=== PATIENT | female | born 1955 | race Caucasian/White ===

== ENCOUNTER → 2017-01-21 | Outpatient (CLI) | payer BC, OTHER ==
[~2017-01-21] MED LIST: CYAN3INJ IM
--- NOTE | 2017-01-21 13:39 | DIAGNOSTIC IMAGING REPORT ---
RIGHT HIP UNILATERAL 2 VIEWS CLINICAL HISTORY: Pain and swelling of right lower extremity Right pain COMPARISON: None. DISCUSSION: The bones and joint spaces appear intact. There is no evidence of fracture, dislocation or bony disease. There is no evidence for soft tissue swelling. IMPRESSION: Negative study. Electronically signed by: Ramón Arroyo M.D. 01/21/2017 1:37 PM Dictated Date/Time: 01/21/2017 1:36 PM
--- NOTE | 2017-01-21 13:40 | DIAGNOSTIC IMAGING REPORT ---
RIGHT FEMUR 2 VIEWS HISTORY: Pain and swelling of right lower extremity Right COMPARISON: None. FINDINGS: The proximal right femur is included on the same day right hip radiograph. No fracture or dislocation within the visualized right femur. Soft tissues are unremarkable. No radiopaque foreign bodies. IMPRESSION: No fractures within the visualized right femur. Electronically signed by: Jt Cleary M.D. 01/21/2017 1:38 PM Dictated Date/Time: 01/21/2017 1:37 PM
== END | disposition home or self-care (01) ==
LOC: C.RADPV 12:17
PROVIDERS: ATTEND Neuromusculoskeletal Medicine & OMM
DX: M79.604 Pain in right leg (principal); M79.89 Other specified soft tissue disorders

== ENCOUNTER → 2017-01-21 | Outpatient (CLI) | payer OTHER ==
--- NOTE | 2017-01-21 14:41 | DIAGNOSTIC IMAGING REPORT ---
ULTRASOUND RIGHT LOWER EXTREMITY VENOUS CLINICAL HISTORY: Right leg pain and swelling. COMPARISON STUDY: No priors. TECHNIQUE: Real-time, grayscale, and color Doppler sonography of the deep veins of the right lower extremity was performed from the inguinal crease to the calf. Compression and augmentation were utilized. FINDINGS: There is no sonographic evidence of deep venous thrombosis identified in the right lower extremity. The common femoral, superficial femoral, and popliteal veins are patent and normally compressible. The greater saphenous vein and the profunda femoris vein at the junction with the common femoral vein are clear. The visualized calf veins are patent. IMPRESSION: There is no sonographic evidence of deep venous thrombosis identified in the right lower extremity. Electronically signed by: Adalberto Gonzales M.D. 01/21/2017 2:39 PM Dictated Date/Time: 01/21/2017 2:38 PM
== END ==
LOC: C.ULTRBC 14:09
PROVIDERS: ATTEND Neuromusculoskeletal Medicine & OMM
DX: M79.604 Pain in right leg (principal); M79.89 Other specified soft tissue disorders

== ENCOUNTER → 2017-10-18 | Outpatient (CLI) | payer OTHER | END | disposition home or self-care (01) | LOC: C.LABPVFM 11:08 | PROVIDERS: ATTEND Family Medicine | DX: E53.8 Deficiency of other specified B group vitamins (principal) ==

== ENCOUNTER → 2017-12-26 | Outpatient (CLI) | payer OTHER | END | disposition home or self-care (01) | LOC: C.LABPVFM 13:26 | PROVIDERS: ATTEND Family Medicine | DX: E53.8 Deficiency of other specified B group vitamins (principal) ==